=== PATIENT | female | born 2000 | race Caucasian/White ===

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

== ENCOUNTER → 2020-12-12 15:10 | Outpatient (CLI) | payer OTHER, SELFPAY | PROVIDERS: Visit Provider Obstetrics & Gynecology | DX: Z12.4 Encounter for screening for malignant neoplasm of cervix (principal) | CPT/HCPCS: 88175; G0145 ==

== ENCOUNTER → 2021-09-19 13:35 | Outpatient (CLI) | payer OTHER, SELFPAY ==
[2021-09-24 19:06] LABS: Chlamydia By Nucleic Acid AMP Negative (Negative)
[2021-09-25 16:41] LABS: Gonococcus By Nucleic Acid AMP Negative (Negative)
== END ==
PROVIDERS: Visit Provider Obstetrics & Gynecology
DX: Z11.3 Encounter for screening for infections with a predominantly sexual mode of transmission (principal)
CPT/HCPCS: 87491; 87591

== ENCOUNTER 2021-10-10 05:30 | Day surgery (SDC) | payer OTHER, SELFPAY ==
--- NOTE | 2021-10-09 22:43 | PCM.HP.BLA ---
History and Physical Date of Admission: 10/10/21 Surgical History and Physical Brittany Mallory, a 21 year old female 0 0 0 0 0, presents for Suction D and E on 10/10/21 at 0730. -- Blighted Ovum -- Presented at approximately 9 weeks 3 days. Denies spotting/bleeding thus far in . Reports having daily fatigue, slight nausea and tender breasts. U/S 2 weeks ago showed possible blighted ovum and 2 weeks later at 11+ weeks this was confirmed. No fetus or FHTs note. 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 none PHYSICAL EXAM BP- 110/72 Sitting, Right arm, regular cuff Weight- 134.0 lbs Height- 64.5 inch BMI:22.7 CONSTITUTIONAL - NAD, well nourished, and well developed SKIN - No rash, lesions, or ulcers HEENT - Normocephalic, PERRLA, EOMI NECK - No nodes, no nuchal rigidity and thyroid normal size and texture LYMPH NODES - Palpation of lymph nodes in neck and groins within normal limits LUNGS - CTA x2 without wheezes, crackles or rales CARDIAC - Regular rate and rhythm without rubs, murmurs, or gallops BREAST - deferred ABDOMEN - Without hepatosplenomegaly, distention, masses, rebound, or guarding; normal bowel sounds; no hernias EXTREMITIES - No edema or calf tenderness NEUROLOGICAL - Cranial nerves II-XII grossly intact PSYCHIATRIC - A and O to time, place, person, mood and affect External Genitial Vagina - non-tender without lesions Urethra/Urethral Meatus - non-tender Bladder - non-tender Vagina - vaginal samuels are pink and moist without loss of rugae and no evidence of atropy Cervix - without cervical motion tenderness and has normal size and features without evident lesions Uterus - enlarged uterus 8 wks, wt 125-150 g Adnexa - clear without massess or tenderness ASSESSMENT/PLAN: 1. Spontaneous Abort [employer] C/W blighted ovum. Discussed options for treatment and pt initiall desired expectant management. Now desires proceeding with Suction D and E. Discussed RBAs and all questions answered.
[2021-10-10 06:23] VITALS: BP 118/77; PULSE 84; RESP 18; TEMP 37.1; O2SAT 100; BMI 22.3
[2021-10-10] MEDS: Lactated Ringers 1,000 ML 15 ML IV (06:37)
[2021-10-10 06:51] LABS: Hematocrit 36.3 % (37-47); Hemoglobin 12.6 g/dL (12.0-15.0); Mean Corp Hgb Conc 34.7 g/dL (32-36); Mean Corpuscular Hgb 33.1 pg (27.0-32.0); Mean Corpuscular Volume 95.3 fL (81-99); Mean Platelet Vol. 11.7 fl (6.2-12.0); Platelet Count 116 K/mm3 (150-450); RBC Distribution Width CV 11.1 % (11.6-14.6); RBC Distribution Width SD 38.7 fl (35.1-43.9); Red Blood Count 3.81 M/mm3 (4.2-5.4); White Blood Count 6.2 K/mm3 (4.4-11.0)
[2021-10-10 06:53] LABS: Prothrombin Time (Protime)PT. 12.8 SECONDS (11.7-14.9)
[2021-10-10 06:54] LABS: Partial Thromboplast Time 35.1 Seconds (24.1-36.2)
--- NOTE | 2021-10-10 07:30 | POC_PTH ---
PATIENT: DANNY HELLER LOC: [facility] – [place] U#:[id number] AGE/SX: 21/F ROOM: RE10/10/[address]: Dr. Ever Taylor MD : [id number] BED: DIS: 10/10/2021 SPEC #: [id number] RECD: 10/10/21 13:23 STATUS: BRYN GUTIERREZCindi #: [id number] PASCALE: 10/10/21 07:[address]: Ever Taylor DEPT: SURGICAL PATHOLOGY RECD BY: Blaine Fenton Tissues: Product of conception, NOS Procedures: Surgery Specimen Level IV HEADER OPERATION: Suction dilation and curettage PRE-OP DIAGNOSIS: Spontaneous incomplete TISSUE SUBMITTED: Products of conception MICROSCOPIC DIAGNOSIS Endometrium, curettage: Chorionic villi, decidualized stroma and trophoblastic cells consistent with products of conception. AM:claude 10/12/2021 MICROSCOPIC DESCRIPTION Slides are reviewed. GROSS DESCRIPTION Received in fixative is one container labeled with the patient's name and designated products of conception. The specimen consists of multiple irregular fragments of light to dark yen soft tissue that in aggregate measure 9 x 5 x 0.8 cm. parts are not grossly recognized. Patient Care Coordinator portions are submitted in two cassettes. / AM:claude 10/11/21 TC:5 CPT: 41208
[2021-10-10] MEDS: Cefotetan 2 GM in 0.9% NS 100 ML IV (07:40)
--- NOTE | 2021-10-10 07:58 | PCM.OPRPT ---
Report of Operation Date of Procedure: 10/10/21 Pre-Operative Diagnosis: Inevitable Miscarriage, Blighted Ovum Post-Operative Diagnosis: Inevitable Miscarriage, Blighted Ovum Surgery/Procedure Performed:: Suction Dilation and Evacuation Description of Surgical Findings:: 8 cm endometrial cavity with products of conception. Surgeon: Ever Taylor Type of Anesthesia: General (LMA) Anesthesiologist: Jamie Bowden Estimated Blood Loss (mL): Minimal Fluids Replaced: Crystalloid Description of Procedure: Surgeon: Ever Taylor MD, FACOG Indication: 21 year patient with incomplete AB and blighted ovum at approximately 11 weeks weeks gestation. Pt has been counseled regarding the risks, benefits, and alternatives of this procedure and all questions were answered. Procedure: Patient was taken to the operating room where she was given IV sedation. The patient was prepped and draped in the usual sterile fashion. Bladder was drained of approximately 50 cc of clear yellow urine with a red rubber catheter. The anterior cervix was grasped with a tenaculum and cervix was dilated. An 7 mm suction curette was inserted into the cervix and all contents removed. Uterus was gently curetted and remaining tissue was removed by reinserting the suction curette. The patient tolerated the procedure well and was taken to the recovery room in satisfactory condition. Sponge, instruments and needle counts were all correct. Cefotetan 2 g IV were given prior to beginning the operative procedure. There were no apparent complications of the surgery. Grafts/Implants Used: None Complications None Admit VTE Documentation VTE Present on Admission: Yes VTE Mechan Device Prophylaxis: SCD's
--- NOTE | 2021-10-10 08:01 | PCM.DC ---
Discharge Instructions Diet Discharge Diet: No restrictions Activity Discharge Activity: Return to Normal Activity, May Shower and May Take a Tub Bath May resume sexual activity in: 1-2 weeks Additional Activity Instructions:: Nothing in vagina for 1 to 2 weeks. Okay the use ibuprofen or Tylenol per package directions for any cramping you may have over the next few days. Dressing / Incision Call your doctor if you observe: Fever of 101 or Higher, Inability to urinate and Inability to have a bowel movement Follow Up Care Please Follow Up With: Ever Taylor MD When: 2 to 3 weeks Test Results: Test results from this visit will be discussed in further detail at your follow-up appointment, if applicable. Discharge Plan Admission Primary Reason for Your Visit: Blighted Ovum, Dilation and Evacuation Attending Provider: Ever Taylor Discharge Orders/Prescriptions Prescriptions: No Action NK RF: 0 Referrals / Follow Up: QUAN COLLADO [Other] Disposition Disposition (needs filled in before D/C Order can be placed): Home, Self Care
[2021-10-10 08:05] VITALS: BP 117/74; BP 118/74; PULSE 99; RESP 16; TEMP 36.4; O2SAT 100
[2021-10-10 08:15] VITALS: BP 118/74; BP 123/84; PULSE 93; RESP 16; O2SAT 100
[2021-10-10 08:20] VITALS: BP 118/74; BP 118/79; PULSE 86; RESP 16; O2SAT 100
[2021-10-10 08:27] VITALS: BP 111/88; BP 118/74; PULSE 75; RESP 16; TEMP 37; O2SAT 100
[2021-10-10 09:26] VITALS: BP 110/66; BP 118/74; PULSE 78; RESP 16; TEMP 36.6; O2SAT 100
== END 2021-10-10 09:41 | disposition home or self-care (01) ==
LOC: SDC 05:39 → AC 05:41
PROVIDERS: Referring Provider Obstetrics & Gynecology; Visit Provider Obstetrics & Gynecology
PROC: (CPT 59812; principal; 2021-10-10 07:15)
DX: O03.4 Incomplete spontaneous abortion without complication (principal); O02.0 Blighted ovum and nonhydatidiform mole; Z87.891 Personal history of nicotine dependence; Z88.0 Allergy status to penicillin; Z3A.11 11 weeks gestation of pregnancy
CPT/HCPCS: 59812; 85027; 85610; 85730; 86850; 86900; 86901; 87426; 88305; J7120; J2405